=== PATIENT | female | born 1930 | race Caucasian/White ===

== ENCOUNTER 2016-08-18 21:22 | Emergency (ER) | payer OTHER ==
[~2016-08-18] VITALS: Ht 160 cm; Wt 47.6 kg
[~2016-08-18 21:22] MED LIST: ASPI81CH49; CARVEDILOL PO; CLOP75TA28; LIPITOR PO; RAMIPRIL PO
[2016-08-19 03:30] VITALS: BP 158/87
[2016-08-19] MEDS ORDERED: LORazepam 2MG/ML-1ML VIAL IM ONE (03:45)
== END 2016-08-19 05:33 | disposition home or self-care (01) ==
LOC: EDBD 21:22 → ER 21:29
DX: S81.802A Unspecified open wound, left lower leg, initial encounter (principal); I25.2 Old myocardial infarction; J44.9 Chronic obstructive pulmonary disease, unspecified; Z85.9 Personal history of malignant neoplasm, unspecified; Z88.6 Allergy status to analgesic agent; Z79.82 Long term (current) use of aspirin; Z79.899 Other long term (current) drug therapy; W22.8XXA Striking against or struck by other objects, initial encounter; Y93.89 Activity, other specified; Y99.8 Other external cause status; Y92.89 Other specified places as the place of occurrence of the external cause
CPT/HCPCS: 73590; 96372; 99284; J2060

== ENCOUNTER 2017-08-17 05:27 | Inpatient (IN) | payer MEDICARE, OTHER ==
[~2017-08-17] VITALS: Ht 152.4 cm; Wt 41.9 kg
[~2017-08-17 05:27] MED LIST changes: -ASPI81CH49; +ASPI81CH49 PO; -CLOP75TA28; +CLOP75TA28 PO
[2017-08-17] MEDS ORDERED: ALBUTEROL SULF 2.5 MG/0.5ML(0.5%) NEB SOLN NEB STA (06:01)
[2017-08-17] MEDS ORDERED: IPRATROPIUM BROM 0.5 MG/2.5ML INH SOL NEB ONE (06:15)
[2017-08-17 06:30] LABS: Hematocrit 42.5 % (36.0-46.0); Hemoglobin 14.3 g/dL (12.2-16.2); Mean Corpuscular Hemoglobin 34.7 pg (28.0-32.0); Mean Corpuscular Hgb Conc. 33.6 g/dL (32.0-36.0); Mean Corpuscular Volume 103.4 fL (80.0-100.0); Platelet Count (auto) 272 10^3/uL (140-450); Red Blood Cells 4.12 10^6/uL (4.0-5.20); Red Cell Distribution Width 13.3 % (11.8-14.3); White Blood Cell 10.7 10^3/uL (4.4-10.8)
[2017-08-17 06:32] LABS: Band Neutrophils % (manual) 0; Basophils % (manual) 0 (0.0-2.0); Blast Cells 0; Eosinophils % (manual) 0 (0-7); Metamyelocytes % 0; Myelocytes % 0; Promyelocytes % 0; Reactive Lymphocytes 0
[2017-08-17] MEDS ORDERED: methylPREDNISolone SOD SUCC 125 MG/2 ML VL IV ONE (07:00)
[2017-08-17 07:01] LABS: BUN/Creatinine Ratio 15.5; Bilirubin, Total 0.5 mg/dL (0.2-1.0); Potassium 3.9 mmol/L (3.5-5.1); Total Protein 7.4 g/dL (6.4-8.2)
[2017-08-17] MEDS ORDERED: HYDR-4683 PO (07:19)
[2017-08-17] MEDS ORDERED: POTA10TA51 PO (07:19)
[2017-08-17] MEDS ORDERED: HYOS0.1269 PO (07:19)
[2017-08-17] MEDS ORDERED: ATEN50TA PO (07:19)
[2017-08-17] MEDS ORDERED: HYDR500C PO (07:19)
[2017-08-17] MEDS ORDERED: LORA1TAB12 PO (07:19)
[2017-08-17] MEDS ORDERED: SENN1TAB14 PO (07:19)
[2017-08-17] MEDS ORDERED: FURO20TA3 PO (07:19)
[2017-08-17 08:36] LABS: INR 1.11 (0.9-1.15); Partial Thromboplastin Time 27.8 sec (22.64-33.71); Prothrombin Time 12.1 sec (9.37-12.3)
[2017-08-17 08:58] LABS: Lymphocytes % (manual) 2 (10.0-50.0); Monocytes % (manual) 10 (0-12)
[2017-08-17 09:45] LABS: Urine Bacteria NONE SEEN /hpf (None Seen); Urine Blood 1+ /uL (Negative); Urine Hyaline Cast FEW /lpf (0 - 2); Urine Mucus FEW (None Seen); Urine Specific Gravity 1.025 (1.001-1.035); Urine WBC 1 /hpf (0 - 5)
[2017-08-17] MEDS ORDERED: MORPHINE SULFATE 4 MG/ML SYR/VIAL IV PRN (11:15)
[2017-08-17] MEDS ORDERED: ALUM & MAG HYDROX-SIMETH LIQ(MAALOX) 30 ML PO ONE (11:15)
[2017-08-17] MEDS ORDERED: NITROGLYCERIN 0.4 MG SL TAB SL PRN ×2 (11:15)
[2017-08-17] MEDS ORDERED: ACETAMINOPHEN 325 MG TAB PO PRN (11:15)
[2017-08-17] MEDS ORDERED: MORPHINE SULF INJ 2 MG/ML SYRINGE 1ML IV PRN (11:15)
[2017-08-17] MEDS ORDERED: ONDANSETRON HCL 4 MG/2 ML VIAL IV PRN (11:15)
[2017-08-17] MEDS ORDERED: ZOLPIDEM TARTRATE 5 MG TAB PO PRN (11:15)
[2017-08-17] MEDS ORDERED: FUROSEMIDE 20 MG TAB PO ONE (11:30)
[2017-08-17] MEDS ORDERED: HYDROcodone-ACET 5/325MG TAB PO PRN (11:30)
[2017-08-17] MEDS ORDERED: cefTRIAXone 1GM/10ml IVPUSH 10 ML IV ONE (11:30)
[2017-08-17] MEDS ORDERED: DEXTROSE (50%) 50ML SYRG IV PRN (11:30)
[2017-08-17] MEDS ORDERED: POTASSIUM CHLORIDE 8 MEQ TAB PO ONE (11:30)
[2017-08-17] MEDS: InsuLIN REG 1unit/0.01ml Soln (100units/ml) SC SCH ×3 (11:30→22:42)
[2017-08-17] MEDS: ACCU-CHEK COMFORT CURVE STRIP VI SCH ×3 (12:09→22:00)
[2017-08-17] MEDS: Boost Glucose Control 8 Ounces PO SCH ×2 (12:40→18:14)
[2017-08-17] MEDS: IPRATROPIUM BROM 0.5 MG/2.5ML INH SOL NEB SCH ×2 (12:45→18:10)
[2017-08-17] MEDS: ALBUTEROL SULF 2.5 MG/0.5ML(0.5%) NEB SOLN NEB SCH ×2 (12:45→18:10)
[2017-08-17 13:20] VITALS: BP 143/84
[2017-08-17] MEDS ORDERED: HYOSCYAMINE SULF 0.125 MG TAB PO PRN (14:30)
[2017-08-17] MEDS ORDERED: SENNA 8.6 MG TAB PO PRN (14:30)
[2017-08-17] MEDS: SODIUM CHLOR 0.9% PF (SALINE LOCK) 10ML VIAL IV SCH ×2 (14:53→22:38)
[2017-08-17] MEDS: FUROSEMIDE 20 MG TAB PO SCH (18:14)
[2017-08-17 21:23] VITALS: BP 136/75
[2017-08-17] MEDS: ATORVASTATIN 20 MG TAB PO SCH (22:39)
[2017-08-17] MEDS: CARVEDILOL 3.125 MG TAB PO SCH (22:40)
[2017-08-17] MEDS: POTASSIUM CHLORIDE 8 MEQ TAB PO SCH (22:40)
[2017-08-17] MEDS: ENALAPRIL MALEATE 2.5 MG TAB PO SCH (22:41)
[2017-08-17] MEDS: ENOXAPARIN SOD 60 MG/0.6 ML SYRINGE SC SCH (22:42)
[2017-08-18] VITALS: BP 111/63
[2017-08-18] MEDS: IPRATROPIUM BROM 0.5 MG/2.5ML INH SOL NEB SCH ×4 (00:10→18:28)
[2017-08-18] MEDS: ALBUTEROL SULF 2.5 MG/0.5ML(0.5%) NEB SOLN NEB SCH ×4 (00:10→18:27)
[2017-08-18 04:00] VITALS: BP 118/70
[2017-08-18 06:20] LABS: Albumin 2.5 g/dL (3.4-5.0); BUN/Creatinine Ratio 32.1; Bilirubin, Total 0.3 mg/dL (0.2-1.0); Magnesium 2.6 mg/dL (1.6-2.6); Potassium 3.8 mmol/L (3.5-5.1); Total Protein 6.5 g/dL (6.4-8.2)
[2017-08-18] MEDS: InsuLIN REG 1unit/0.01ml Soln (100units/ml) SC SCH ×4 (06:30→22:15)
[2017-08-18] MEDS: SODIUM CHLOR 0.9% PF (SALINE LOCK) 10ML VIAL IV SCH ×3 (06:30→22:19)
[2017-08-18] MEDS: ACCU-CHEK COMFORT CURVE STRIP VI SCH ×4 (06:30→22:15)
[2017-08-18] MEDS: FUROSEMIDE 20 MG TAB PO SCH ×2 (06:30→17:24)
[2017-08-18 08:00] VITALS: BP 136/91
[2017-08-18] MEDS: Boost Glucose Control 8 Ounces PO SCH ×3 (09:03→17:24)
[2017-08-18] MEDS ORDERED: RAMIPRIL 2.5 MG CAP PO SCH (10:00)
[2017-08-18] MEDS: LORazepam 0.5 MG TAB PO PRN ×2 (10:58→23:16)
[2017-08-18] MEDS: HYDROXYUREA 500 MG CAP PO SCH (10:59)
[2017-08-18] MEDS: DOCUSATE SOD 100 MG CAP PO SCH (10:59)
[2017-08-18] MEDS: CLOPIDOGREL BISULFATE 75 MG TAB PO SCH (10:59)
[2017-08-18] MEDS: ENALAPRIL MALEATE 2.5 MG TAB PO SCH ×2 (11:00→21:24)
[2017-08-18] MEDS: CARVEDILOL 3.125 MG TAB PO SCH ×2 (11:00→21:23)
[2017-08-18] MEDS: ENOXAPARIN SOD 60 MG/0.6 ML SYRINGE SC SCH ×2 (11:01→21:24)
[2017-08-18] MEDS: ASPirin 81 mg TAB PO SCH (11:01)
[2017-08-18] MEDS: POTASSIUM CHLORIDE 8 MEQ TAB PO SCH ×2 (11:05→21:36)
[2017-08-18 11:50] VITALS: BP 127/68
[2017-08-18 15:52] VITALS: BP 147/88
[2017-08-18] MEDS: ATORVASTATIN 20 MG TAB PO SCH (21:23)
[2017-08-18 22:00] VITALS: BP 175/97
[2017-08-19] MEDS: IPRATROPIUM BROM 0.5 MG/2.5ML INH SOL NEB SCH ×3 (00:33→11:28)
[2017-08-19] MEDS: ALBUTEROL SULF 2.5 MG/0.5ML(0.5%) NEB SOLN NEB SCH ×2 (00:33→06:41)
[2017-08-19 05:00] VITALS: BP 151/78
[2017-08-19] MEDS: FUROSEMIDE 20 MG TAB PO SCH (06:00)
[2017-08-19] MEDS: SODIUM CHLOR 0.9% PF (SALINE LOCK) 10ML VIAL IV SCH ×2 (06:05→13:26)
[2017-08-19] MEDS: InsuLIN REG 1unit/0.01ml Soln (100units/ml) SC SCH ×2 (07:00→11:30)
[2017-08-19] MEDS: ACCU-CHEK COMFORT CURVE STRIP VI SCH ×2 (07:05→11:30)
[2017-08-19] MEDS: Boost Glucose Control 8 Ounces PO SCH ×2 (08:00→12:00)
[2017-08-19] MEDS ORDERED: XOPONEX NEB PRN (08:45)
[2017-08-19 09:00] VITALS: BP 144/82
[2017-08-19] MEDS: methylPREDNISolone SOD SUCC 40 MG/ML VL IV SCH ×2 (09:00→14:39)
[2017-08-19] MEDS ORDERED: cefTRIAXone 1GM/10ml IVPUSH 10 ML IV SCH (09:00)
[2017-08-19] MEDS ORDERED: LEVALBUTEROL HCL 1.25 MG/3 ML NEB IN PRN (09:00)
[2017-08-19] MEDS: ASPirin 81 mg TAB PO SCH (10:00)
[2017-08-19] MEDS: ENALAPRIL MALEATE 2.5 MG TAB PO SCH (10:00)
[2017-08-19] MEDS ORDERED: AZITHROMYCIN 500MG/ 250ML 250 ML IV SCH (10:00)
[2017-08-19] MEDS: ENOXAPARIN SOD 60 MG/0.6 ML SYRINGE SC SCH (10:00)
[2017-08-19] MEDS: CARVEDILOL 3.125 MG TAB PO SCH (10:00)
[2017-08-19] MEDS: DOCUSATE SOD 100 MG CAP PO SCH (13:23)
[2017-08-19] MEDS: HYDROXYUREA 500 MG CAP PO SCH (13:24)
[2017-08-19] MEDS: CLOPIDOGREL BISULFATE 75 MG TAB PO SCH (13:25)
[2017-08-19] MEDS: POTASSIUM CHLORIDE 8 MEQ TAB PO SCH (13:25)
[2017-08-19] MEDS ORDERED: FUROSEMIDE 40 MG/4 ML VIAL IV SCH (18:00)
== END 2017-08-19 15:54 | disposition hospice, home (50) | DRG 280 ==
LOC: ER 05:28 → OVERFLOW 05:29 → DOU IN ICU 20:55 → TELE-WESTW 08-18 18:55
PROVIDERS: ADMIT Internal Medicine; ATTEND Internal Medicine Geriatric Medicine
DX: I13.0 Hypertensive heart and chronic kidney disease with heart failure and stage 1 through stage 4 chronic kidney disease, or unspecified chronic kidney disease (principal); I21.4 Non-ST elevation (NSTEMI) myocardial infarction; I50.43 Acute on chronic combined systolic (congestive) and diastolic (congestive) heart failure; E44.0 Moderate protein-calorie malnutrition; E11.21 Type 2 diabetes mellitus with diabetic nephropathy; E11.22 Type 2 diabetes mellitus with diabetic chronic kidney disease; D75.1 Secondary polycythemia; J44.1 Chronic obstructive pulmonary disease with (acute) exacerbation; Z68.1 Body mass index [BMI] 19.9 or less, adult; E11.65 Type 2 diabetes mellitus with hyperglycemia; Z51.5 Encounter for palliative care; N18.2 Chronic kidney disease, stage 2 (mild); R74.8 Abnormal levels of other serum enzymes; E86.0 Dehydration; F17.210 Nicotine dependence, cigarettes, uncomplicated; G89.29 Other chronic pain; I25.10 Atherosclerotic heart disease of native coronary artery without angina pectoris; Z85.3 Personal history of malignant neoplasm of breast; Z91.19 Patient's noncompliance with other medical treatment and regimen; Z95.0 Presence of cardiac pacemaker; Z90.12 Acquired absence of left breast and nipple; Z79.899 Other long term (current) drug therapy; Z88.5 Allergy status to narcotic agent; Z66 Do not resuscitate
CPT/HCPCS: 36415; 71045; 80053; 80061; 81001; 82962; 83036; 83735; 83880; 84443; 84484; 85007; 85027; 85610; 85730; 87081; 93005; 93306; 94640; 94761; 96374; 96375; J1815